=== PATIENT | male | born 1965 | race Caucasian/White ===

== ENCOUNTER 2017-06-03 06:11 | Emergency (ER) | payer BC, MEDICAID, SELFPAY ==
[~2017-06-03] VITALS: Ht 182.9 cm; Wt 68.2 kg
[2017-06-03] MEDS ORDERED: PROAAER10 INH (06:18)
[2017-06-03] MEDS ORDERED: FLUT22IN INH (06:18)
[2017-06-03] MEDS ORDERED: duo neb (06:19)
[2017-06-03] MEDS ORDERED: PRED20TA PO (06:37)
[2017-06-03] MEDS ORDERED: dexameTHASONE 20 MG/5 ML VIAL (J1100) IV ONE (06:45)
[2017-06-03] MEDS: IPRATROPIUM 0.5MG/ALBUTEROL 2.5MG INH SOL UD 3ML (DUONEB)(J7620) NEB SCH ×3 (06:56→07:16)
[2017-06-03 07:21] VITALS: BP 142/78
[2017-06-03 07:47] VITALS: O2SAT 96
--- NOTE | 2017-06-03 09:33 | REP ---
REASON: Dyspnea. COMPARISON: 06/24/2013. Mild chronic biapical changes with pleuroparenchymal scarring status quo. The lung sparks are otherwise clear and unchanged. The heart is not enlarged. There is no change in the osseous structures. IMPRESSION: No acute cardiopulmonary disease. Findings as described above. Signed by Khari Omalley DO 06/03/2017 09:50 A
== END 2017-06-03 08:23 | disposition home or self-care (01) ==
LOC: M ED 06:11
DX: J45.901 Unspecified asthma with (acute) exacerbation (principal); J44.9 Chronic obstructive pulmonary disease, unspecified; F17.210 Nicotine dependence, cigarettes, uncomplicated; Z79.51 Long term (current) use of inhaled steroids
CPT/HCPCS: 71020; 94640; 96374; 99284; J1100

== ENCOUNTER 2017-08-20 05:16 | Emergency (ER) | payer OTHER, MEDICAID ==
[2017-08-20] MEDS: dexameTHASONE 20 MG/5 ML VIAL (J1100) IV (06:00)
[2017-08-20] MEDS: ALBUTEROL SULFATE 2.5 MG/0.5 ML INH NEB SOLN NEB (06:10)
[2017-08-20] MEDS: predniSONE 20 MG TAB PO (06:14)
== END 2017-08-20 07:28 | disposition left against medical advice (07) ==
LOC: M ED 05:16
DX: J42 Unspecified chronic bronchitis (principal); J44.9 Chronic obstructive pulmonary disease, unspecified; F17.210 Nicotine dependence, cigarettes, uncomplicated
CPT/HCPCS: 71046

== ENCOUNTER → 2017-12-05 | Outpatient (REF) | LOC: M SMT 14:09 | DX: M51.37 Other intervertebral disc degeneration, lumbosacral region (principal) ==

== ENCOUNTER → 2018-01-10 | Outpatient (CLI) | payer OTHER | LOC: M CARPUL 08:41 | DX: J44.9 Chronic obstructive pulmonary disease, unspecified (principal) | CPT/HCPCS: 94060 ==

== ENCOUNTER → 2018-01-31 | Outpatient (CLI) | payer OTHER, MEDICAID | LOC: M SLEEP HO 15:34 | DX: R40.0 Somnolence (principal) | CPT/HCPCS: G0399 ==

== ENCOUNTER → 2018-03-24 | Outpatient (CLI) | payer OTHER | LOC: M SLEEP 19:15 | DX: R40.0 Somnolence (principal) | CPT/HCPCS: 95810 ==

== ENCOUNTER 2019-09-30 21:28 | Emergency (ER) | payer MEDICARE, MEDICAID ==
[~2019-09-30] VITALS: Ht 182.9 cm; Wt 77.3 kg
[~2019-09-30 21:28] MED LIST: BUDE0.5S6 INH; FLUT22IN INH; PRED20TA PO; PROAAER10 INH; duo neb
[2019-09-30] MEDS ORDERED: AMIT100TA PO (21:35)
[2019-09-30] MEDS ORDERED: FLUT22IN INH (21:35)
[2019-09-30] MEDS ORDERED: MECLIZINE 25 MG TABLET PO ONE (22:00)
[2019-09-30 22:33] LABS: BASO # 0.1 10^3/uL (0.0-0.2); BASO % 0.7 % (0.0-1.0); EOS # 0.2 10^3/uL (0.0-0.5); EOS % 1.8 % (0.0-3.0); HEMATOCRIT 52.6 % (42.0-52.0); HEMOGLOBIN 17.5 g/dl (13.5-17.5); LYMPH # 2.3 10^3/uL (1.5-5.0); LYMPH % 19.3 % (24.0-44.0); MEAN CORPUSCULAR HEMOGLOBIN 29.8 pg (27.0-33.0); MEAN CORPUSCULAR HGB CONC 33.3 g/dl (32.0-36.5); MEAN CORPUSCULAR VOLUME 89.5 fl (80.0-96.0); MONO # 0.7 10^3/uL (0.0-0.8); MONO % 5.5 % (0.0-5.0); NEUTROPHILS # 8.5 10^3/uL (1.5-8.5); NEUTROPHILS % 72.1 % (36.0-66.0); PLATELET COUNT, AUTOMATED 284 10^3/uL (150-450); RED BLOOD COUNT 5.88 10^6/uL (4.30-6.10); WHITE BLOOD COUNT 11.8 10^3/uL (4.0-10.0)
[2019-09-30 22:43] LABS: INR 1.02; PROTHROMBIN TIME 13.1 SECONDS (11.8-14.0)
[2019-09-30 22:44] LABS: PARTIAL THROMBOPLASTIN TIME 29.5 SECONDS (25.0-38.4)
--- NOTE | 2019-09-30 22:45 | REPVR ---
PROCEDURE INFORMATION: Exam: CT Head Without Contrast Exam date and time: 09/30/2019 10:39 PM Age: 54 years old Clinical indication: Syncope and collapse TECHNIQUE: Imaging protocol: Computed tomography of the head without contrast. Radiation optimization: All CT scans at this facility use at least one of these dose optimization techniques: automated exposure control; mA and/or kV adjustment per patient size (includes targeted exams where dose is matched to clinical indication); or iterative reconstruction. COMPARISON: No relevant prior studies available. FINDINGS: Brain: Normal. No hemorrhage. Unremarkable white matter. No mass effect. Ventricles: Normal. No ventriculomegaly. Bones/joints: Unremarkable. No acute fracture. Sinuses: Visualized sinuses are unremarkable. No fluid levels. Mastoid air cells: Visualized mastoid air cells are well aerated. Orbits: Chronic changes to the right globe. Soft tissues: Left parietal scalp 3 cm sebaceous cyst. IMPRESSION: No acute intracranial abnormality. Electronically signed by: Nikolay Gongora On 09/30/2019 22:45:30 PM
[2019-09-30 22:51] LABS: D-DIMER QUANT < 270 ng/ml (<500)
[2019-09-30 23:07] LABS: ALBUMIN 3.8 GM/DL (3.2-5.2); ALT/SGPT 33 U/L (12-78); BILIRUBIN,DIRECT < 0.1 MG/DL (0.0-0.2); BILIRUBIN,TOTAL 0.2 MG/DL (0.2-1.0); BLOOD UREA NITROGEN 10 MG/DL (7-18); CALCIUM LEVEL 9.9 MG/DL (8.5-10.1); CARBON DIOXIDE LEVEL 29 MEQ/L (21-32); CHLORIDE LEVEL 106 MEQ/L (98-107); CK-MB VALUE MASS 1.1 NG/ML (<3.6); CPK CREATINE PHOSPHOKINASE 55 U/L (39-308); CREATININE FOR GFR 1.13 MG/DL (0.70-1.30); FREE T4 0.95 NG/DL (0.76-1.46); GLOMERULAR FILTRATION RATE > 60.0 (>56); GLUCOSE, FASTING 105 MG/DL (70-100); MAGNESIUM LEVEL 1.8 MG/DL (1.8-2.4); POTASSIUM SERUM 3.8 MEQ/L (3.5-5.1); SODIUM LEVEL 138 MEQ/L (136-145); TOTAL PROTEIN 7.6 GM/DL (6.4-8.2); TROPONIN I < 0.02 NG/ML (< 0.10)
[2019-09-30] MEDS ORDERED: MECL1TAB31 PO (23:34)
[2019-09-30] MEDS ORDERED: ONDA4TAB6 PO (23:34)
[2019-09-30 23:48] VITALS: BP 138/89
--- NOTE | 2019-10-01 08:13 | REP ---
PORTABLE CHEST X-RAY: Single view. HISTORY: Syncope. COMPARISON STUDY: November 30, 2017. FINDINGS: Heart is not enlarged. There is minimal linear plate-like atelectasis in the right base. There is stable biapical pleuroparenchymal fibrosis. No infiltrate is seen. Pulmonary vasculature is not increased. IMPRESSION: Biapical fibrotic changes. Mild plate-like atelectasis right base. Otherwise no acute disease. Electronically Signed by Yoan Jennings MD 10/01/2019 08:59 A
--- NOTE | 2019-10-01 10:40 | ECGEPIP ---
[facility] - ED Test Date: 2019-09-30 Pat Name: SHANICE HOFFMANN Department: Room: - Gender: Male Valet Parker: inez : 1965 Requested By: LOGAN LU PA-C Order Number: [id number] Reading MD: Hieu Champagne Measurements Intervals [place] Rate: 65 P: 58 NV: 170 QRS: -17 QRSD: 102 T: 54 QT: 407 QTc: 424 Interpretive Statements SINUS RHYTHM SIMILAR TO 11/30/17 Electronically Signed on 10-01-2019 10:40:08 EDT by Hieu Champagne
== END 2019-10-01 00:03 | disposition home or self-care (01) ==
LOC: M ED 21:28
DX: R42 Dizziness and giddiness (principal); J45.909 Unspecified asthma, uncomplicated; J44.9 Chronic obstructive pulmonary disease, unspecified; F17.200 Nicotine dependence, unspecified, uncomplicated; R11.2 Nausea with vomiting, unspecified; L75.0 Bromhidrosis; H92.01 Otalgia, right ear

== ENCOUNTER → 2022-04-14 | Outpatient (REF) | payer MEDICARE, MEDICAID ==
[~2022-04-14] MED LIST changes: +AMIT100TA PO; +MECL1TAB31 PO; +ONDA4TAB6 PO
== END ==
LOC: M SFHCPLAZ 15:56
PROVIDERS: ATTEND Physician Assistant
DX: R05.1 Acute cough (principal)

== ENCOUNTER → 2022-07-26 | Outpatient (REF) | payer MEDICARE, MEDICAID | LOC: M SFHCPLAZ 10:05 | PROVIDERS: ATTEND Physician Assistant | DX: J44.1 Chronic obstructive pulmonary disease with (acute) exacerbation (principal) ==

== ENCOUNTER → 2022-09-06 | Outpatient (REF) | payer MEDICARE, MEDICAID ==
[2022-09-06 16:16] LABS: BASO # 0.1 10^3/uL (0.0-0.2); BASO % 0.6 % (0.0-1.0); EOS # 0.2 10^3/uL (0.0-0.5); HEMATOCRIT 50.4 % (42.0-52.0); HEMOGLOBIN 16.5 g/dl (13.5-17.5); LYMPH # 2.2 10^3/uL (1.5-5.0); LYMPH % 25.4 % (24.0-44.0); MEAN CORPUSCULAR HEMOGLOBIN 30.2 pg (27.0-33.0); MEAN CORPUSCULAR HGB CONC 32.7 g/dl (32.0-36.5); MEAN CORPUSCULAR VOLUME 92.3 fl (80.0-96.0); MONO # 0.4 10^3/uL (0.0-0.8); NEUTROPHILS # 5.8 10^3/uL (1.5-8.5); PLATELET COUNT, AUTOMATED 291 10^3/uL (150-450); RED BLOOD COUNT 5.46 10^6/uL (4.30-6.10); WHITE BLOOD COUNT 8.8 10^3/uL (4.0-10.0)
[2022-09-06 16:45] LABS: ALBUMIN 3.7 G/DL (3.2-5.2); ALKALINE PHOSPHATASE 137 U/L (46-116); ALT/SGPT 25 U/L (7.0-40); AST/SGOT 14 U/L (<34); BILIRUBIN,TOTAL 0.3 MG/DL (0.3-1.2); BLOOD UREA NITROGEN 8 MG/DL (9-23); CALCIUM LEVEL 9.4 MG/DL (8.5-10.1); CARBON DIOXIDE LEVEL 27 MMOL/L (20-31); CHLORIDE LEVEL 104 MMOL/L (98-107); CHOLESTEROL LEVEL 197 MG/DL (<200); CHOLESTEROL RISK RATIO 5.58 (<5); CREATININE FOR GFR 0.66 MG/DL (0.70-1.30); GLOMERULAR FILTRATION RATE > 60.0 (>56); GLUCOSE, FASTING 86 MG/DL (60-100); HDL CHOLESTEROL 35.3 MG/DL (>40); LDL CHOLESTEROL 132.7 MG/DL (<100); NON-HDL-C 161.7 MG/DL; POTASSIUM SERUM 4.7 MMOL/L (3.5-5.1); SODIUM LEVEL 138 MMOL/L (136-145); TOTAL PROTEIN 7.2 G/DL (5.7-8.2); TRIGLYCERIDES LEVEL 145 MG/DL (<150)
== END ==
LOC: M SFHCADAM 14:56
PROVIDERS: ATTEND Physician Assistant
DX: J44.1 Chronic obstructive pulmonary disease with (acute) exacerbation (principal); F17.210 Nicotine dependence, cigarettes, uncomplicated; Z13.220 Encounter for screening for lipoid disorders; Z79.899 Other long term (current) drug therapy

== ENCOUNTER → 2022-09-06 | Outpatient (CLI) | payer MEDICARE, MEDICAID | LOC: M ADAMS 14:58 | PROVIDERS: ATTEND Physician Assistant | DX: J44.1 Chronic obstructive pulmonary disease with (acute) exacerbation (principal) ==

== ENCOUNTER → 2022-09-19 | Outpatient (REF) | payer MEDICARE, MEDICAID | LOC: M SFHCADAM 14:20 | PROVIDERS: ATTEND Physician Assistant | DX: J44.1 Chronic obstructive pulmonary disease with (acute) exacerbation (principal) ==

== ENCOUNTER → 2022-09-26 | Outpatient (CLI) | payer MEDICARE, MEDICAID | LOC: M PLAIMG 13:03 | PROVIDERS: ATTEND Physician Assistant | DX: Z87.891 Personal history of nicotine dependence (principal); J44.9 Chronic obstructive pulmonary disease, unspecified; R05.9 Cough, unspecified ==

== ENCOUNTER → 2022-10-04 | Outpatient (CLI) | payer MEDICARE, MEDICAID | LOC: M CARPUL 11:03 | PROVIDERS: ATTEND Physician Assistant | DX: J44.9 Chronic obstructive pulmonary disease, unspecified (principal) ==

== ENCOUNTER → 2022-10-12 | Outpatient (CLI) | payer MEDICARE, MEDICAID | LOC: M ADAMS 09:16 | PROVIDERS: ATTEND Physician Assistant | DX: J44.1 Chronic obstructive pulmonary disease with (acute) exacerbation (principal) ==

== ENCOUNTER → 2023-03-15 | Outpatient (CLI) | payer MEDICARE, MEDICAID ==
[~2023-03-15] MED LIST changes: +MECL-209 PO; -MECL1TAB31 PO
== END ==
LOC: M PLAIMG 12:38
PROVIDERS: ATTEND Physician Assistant
DX: Z87.891 Personal history of nicotine dependence (principal)

== ENCOUNTER → 2024-04-18 | Outpatient (REF) | payer MEDICARE, MEDICAID ==
[~2024-04-18] MED LIST changes: +ONDA-282 PO; -ONDA4TAB6 PO
[2024-04-18 18:44] LABS: BASO # 0.1 10^3/uL (0.0-0.2); BASO % 0.8 % (0.0-1.0); EOS # 0.4 10^3/uL (0.0-0.5); EOS % 3.9 % (0.0-3.0); HEMATOCRIT 54.3 % (42.0-52.0); HEMOGLOBIN 18.1 g/dl (13.5-17.5); LYMPH # 3.3 10^3/uL (1.5-5.0); LYMPH % 34.8 % (24.0-44.0); MEAN CORPUSCULAR HEMOGLOBIN 30.5 pg (27.0-33.0); MEAN CORPUSCULAR HGB CONC 33.3 g/dl (32.0-36.5); MEAN CORPUSCULAR VOLUME 91.6 fl (80.0-96.0); MONO # 0.8 10^3/uL (0.0-0.8); NEUTROPHILS # 4.9 10^3/uL (1.5-8.5); NEUTROPHILS % 52.2 % (36.0-66.0); PLATELET COUNT, AUTOMATED 286 10^3/uL (150-450); RED BLOOD COUNT 5.93 10^6/uL (4.30-6.10); WHITE BLOOD COUNT 9.5 10^3/uL (4.0-10.0)
[2024-04-18 19:07] LABS: PSA SCREENING 0.69 NG/ML (< 4.00)
[2024-04-18 19:08] LABS: ALBUMIN 3.5 G/DL (3.2-5.2); ALKALINE PHOSPHATASE 126 U/L (40-129); ALT/SGPT 21 U/L (7.0-40); AST/SGOT < 8 U/L (<34); BILIRUBIN,TOTAL 0.5 MG/DL (0.3-1.2); BLOOD UREA NITROGEN 10 MG/DL (9-23); CARBON DIOXIDE LEVEL 30 MMOL/L (20-31); CHLORIDE LEVEL 107 MMOL/L (98-107); CHOLESTEROL LEVEL 192 MG/DL (<200); CHOLESTEROL RISK RATIO 6.11 (<5); CREATININE FOR GFR 0.86 MG/DL (0.70-1.30); GLOMERULAR FILTRATION RATE > 60.0 (>49); GLUCOSE, FASTING 76 MG/DL (74-106); HDL CHOLESTEROL 31.4 MG/DL (>40); LDL CHOLESTEROL 113.4 MG/DL (<100); NON-HDL-C 160.6 MG/DL; POTASSIUM SERUM 4.1 MMOL/L (3.5-5.1); SODIUM LEVEL 139 MMOL/L (136-145); TOTAL PROTEIN 7.3 G/DL (5.7-8.2); TRIGLYCERIDES LEVEL 236 MG/DL (<150)
[2024-04-18 19:39] LABS: HEMOGLOBIN A1c 4.9 % (4.0-6.0)
== END ==
LOC: M SFHCADAM 14:56
PROVIDERS: ATTEND Physician Assistant
DX: Z00.00 Encounter for general adult medical examination without abnormal findings (principal); J44.9 Chronic obstructive pulmonary disease, unspecified; E78.5 Hyperlipidemia, unspecified; F51.01 Primary insomnia; Z12.5 Encounter for screening for malignant neoplasm of prostate
CPT/HCPCS: 80053; 80061; 83036; 85025; G0103

== ENCOUNTER → 2024-05-06 | Outpatient (CLI) | payer MEDICAID, MEDICARE | LOC: M PLAIMG 16:27 | PROVIDERS: ATTEND Physician Assistant Medical | DX: J40 Bronchitis, not specified as acute or chronic (principal); J96.11 Chronic respiratory failure with hypoxia ==

== ENCOUNTER → 2024-05-21 | Outpatient (CLI) | payer MEDICAID, MEDICARE | LOC: M RAD 14:48 | PROVIDERS: ATTEND Physician Assistant | DX: F17.210 Nicotine dependence, cigarettes, uncomplicated (principal) ==

== ENCOUNTER → 2025-04-29 | Outpatient (REF) | payer MEDICARE, MEDICAID ==
[2025-04-29 14:34] LABS: ALT/SGPT 18.0 U/L (7.0-40); AST/SGOT 16.0 U/L (<34); CHOLESTEROL LEVEL 185.0 MG/DL (<200); CHOLESTEROL RISK RATIO 5.0 (<5); LDL CHOLESTEROL 115.8 MG/DL (<100); NON-HDL-C 148.0 MG/DL; TRIGLYCERIDES LEVEL 161.0 MG/DL (<150)
[2025-04-29 14:35] LABS: CPK CREATINE PHOSPHOKINASE 37.0 U/L (46-171)
== END ==
LOC: M LABDRWAD 13:11
PROVIDERS: ATTEND Internal Medicine Cardiovascular Disease
DX: E78.2 Mixed hyperlipidemia (principal)